=== PATIENT | male | born 1995 | race African-American/Black ===

== ENCOUNTER 2023-04-15 15:47 | Emergency (ER) | payer SELFPAY ==
[2023-04-15 15:48] VITALS: BP 115/75; PULSE 66; RESP 16; TEMP 36.6; O2SAT 98; BMI 22.8
--- NOTE | 2023-04-15 17:37 | ED_ITS ---
Discharge Plan Disposition Chief Complaint: Medical Clearance Referrals Follow up/Referrals: Provider,Referral, [Primary Care Provider] - See instructions Clinical Impressions Clinical Impression: Nausea & vomiting, Medical clearance for incarceration Discharge ED Provider: Abdirizak Pruitt General Adult HPI General Chief complaint: Medical Clearance Stated complaint: medical clearance Time Seen by Provider: 04/15/23 17:36 Mode of Arrival: Ambulatory Source of Information: Law Enforcement Limitations: No Limitations Description of Symptoms (Recalled from ER Triage Doc. by RN): Presents to ED in police custody for a medical clearance. Law enforcement stated on sceen patient vomited three times and had an episode of lightheadedness. 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 History of Present Illness HPI narrative: Patient is a 28-year-old male who was picked up for drug charges by law enforcement and states that during that time he got very emotional stated he felt lightheaded and nauseated. He felt fine before he was arrested and he states he feels fine now and denies any nausea abdominal pain or other complaints at the moment. Is not been sick leading up to this moment today. Denies any medical problems in the past. [facility] Disclaimer: The information contained in this section may have been updated after the patient was seen, as this information can be updated by other users. Social History Smoking Status: Current every day smoker alcohol intake: never current occupational status: other Travel in the last 8 weeks: None ROS Obtained: Yes All systems reviewed & no additional complaints except as documented Physical Exam General General appearance: alert Respiratory Respiratory exam: Present normal lung sounds bilaterally Cardiovascular Cardiovascular exam: Present regular rate Neurological Exam Neurological exam: Present alert and oriented X3 Medical Decision Making Gilberto Inquiry Pt receiving controlled substance: No Vital Signs: 04/15/23 15:48 Temperature 97.9 F Temperature Source Oral Pulse Rate [Right] 66 Respiratory Rate 16 Blood Pressure [Right Arm] 115/75 Blood Pressure Mean [Right Arm] 88 Blood Pressure Source [Right Arm] Automatic Cuff Blood Pressure Position [Right Arm] Sitting 02 Sat by Pulse Oximetry 98 Oxygen Delivery Method Room Air Medical Decision Narrative: 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 States he felt fine before and after he has been here an hour and a half without any symptoms. At this point I do not feel like he needs any emergent medical evaluation or treatment. He has been cleared to be discharged with law enforc ement. Critical Care Critical Care Time Critical Care Time: No
[2023-04-15 17:43] VITALS: BP 115/75; PULSE 66; RESP 16; TEMP 36.6; O2SAT 98
== END 2023-04-15 17:45 ==
PROVIDERS: Emergency Provider Student in an Organized Health Care Education/Training Program
DX: R11.2 Nausea with vomiting, unspecified (principal); F17.200 Nicotine dependence, unspecified, uncomplicated
CPT/HCPCS: 99281